=== PATIENT | male | born 1955 | race Caucasian/White ===

== ENCOUNTER 2023-12-22 07:05 | Emergency (ER) | payer OTHER, SELFPAY ==
[2023-12-22] MEDS ORDERED: DOXYCYCLINE 100 MG CAP PO ONE (07:40)
[2023-12-22] MEDS ORDERED: CLINDAMYCIN 600MG/D5W 50 ML IV ONE (07:40)
--- NOTE | 2023-12-22 08:07 | ER ---
Nurse's Notes [facility] Name: Flakito Abbott Age: 68 yrs Sex: Male : 1955 Arrival Date: 12/22/2023 Time: 07:05 Bed 8 Private MD: Diagnosis: Cellulitis of left finger Presentation: 12/21 07:21 Chief complaint: Patient states: has a small cut on left index finger that he noticed iw yesterday , has had pain throughout the night and it is red and swollen , pt is unsure how he injured himself but he was pulling weeds yesterday. Coronavirus screen: At this time, the client does not indicate any symptoms associated with coronavirus-19. Ebola Screen: No symptoms or risks identified at this time. Initial Sepsis Screen: Does the patient meet any 2 criteria? No. Patient's initial sepsis screen is negative. Does the patient have a suspected source of infection? No. Patient's initial sepsis screen is negative. Risk Assessment: Do you want to hurt yourself or someone else? Patient reports no desire to harm self or others. Onset of symptoms was December 21, 2023. 07:21 Method Of Arrival: Ambulatory iw 07:21 Acuity: KAYLAN 4 iw Historical: - Allergies: 07:23 No Known Allergies; iw - PMHx: 07:23 Hypertensive disorder; iw - Immunization history:: Adult Immunizations up to date. - Infectious Disease History:: Denies. - Social history:: Smoking status: Patient reports use of chewing tobacco. - Family history:: not pertinent. - Hospitalizations: : No recent hospitalization is reported. Screenin:25 [facility] ED Fall Risk Assessment (Adult) History of falling in the last 3 months, iw including since admission No falls in past 3 months (0 pts) Confusion or Disorientation No (0 pts) Intoxicated or Sedated No (0 pts) Impaired Gait No (0 pts) Mobility Assist Device Used No (0 pt) Altered Elimination No (0 pt) Score/Fall Risk Level 0 - 2 = Low Risk Oriented to surroundings, Maintained a safe environment. Abuse screen: Denies threats or abuse. Nutritional screening: No deficits noted. Tuberculosis screening: No symptoms or risk factors identified. Assessment: 07:24 General: Appears in no apparent distress. Behavior is calm, cooperative. Pain: iw Complains of pain in palmar aspect of distal phalanx of left index finger, palmar aspect of middle phalanx of left index finger and palmar aspect of proximal phalanx of left index finger Pain currently is 8 out of 10 on a pain scale. Neuro: Level of Consciousness is awake, alert, obeys commands, Oriented to person, place, time, situation, Moves all extremities. Cardiovascular: Patient's skin is warm and dry. Respiratory: Airway is patent Respiratory effort is even, unlabored, Respiratory pattern is regular. Derm: Musculoskeletal: Swelling present in palmar aspect of distal phalanx of left index finger and palmar aspect of middle phalanx of left index finger. Vital Signs: 07:21 BP 136 / 80; Pulse 69; Resp 16; Pulse Ox 98% on R/A; Weight 113.4 kg; Height 6 ft. 0 iw in. ; Pain 8/10; 07:21 Body Mass Index 33.91 (113.40 kg, 182.88 cm) iw 07:21 Pain Scale: Adult iw ED Course: 07:12 Patient arrived in ED. ra3 07:13 Garfield Koch MD is Attending Physician. rn 07:23 Triage completed. iw 07:24 Arm band placed on. iw 07:25 Patient has correct armband on for positive identification. iw 07:33 Emmie Kendrick RN is Primary Nurse. iw 07:52 Inserted saline lock: 22 gauge in right hand, using aseptic technique. Flushed with 10 iw mL NS. 08:20 Provided Education on: follow up instructions . iw 08:51 No provider procedures requiring assistance completed. IV discontinued, intact, iw bleeding controlled, No redness/swelling at site. Pressure dressing applied. Administered Medications: 07:40 Drug: Clindamycin IVPB 600 mg IVPB once over 30 mins; (mix in 50 mL) Route: IVPB; iw Infused Over: 30 mins; Site: right hand; 08:00 Follow up: IV Status: Completed infusion iw 07:51 Drug: Doxycycline PO 100 mg PO once Route: PO; iw 08:00 Follow up: Response: No adverse reaction iw 07:55 Not Given (Other Intervention Used): [id number] mg IM once iw Medication: 07:30 VIS not applicable for this client. iw Outcome: 08:06 Discharge ordered by . rn 08:51 Discharged to home ambulatory, iw 08:51 Condition: good 08:51 Discharge instructions given to patient, Instructed on discharge instructions, follow up and referral plans. medication usage, Demonstrated understanding of instructions, follow-up care, medications, Prescriptions given X 3, 08:52 Patient left the ED. iw Signatures: Emmie Kendrick, RN Garfield Woodward MD MD rn Alva, Ruby ra3 Corrections: (The following items were deleted from the chart) 19:24 10:00 Provided Education on: follow up instructions . iw iw
--- NOTE | 2023-12-22 08:07 | EDPHYS ---
Physician Documentation [facility] Name: Flakito Abbott Age: 68 yrs Sex: Male : 1955 Arrival Date: 12/22/2023 Time: 07:05 Bed 8 Private MD: ED Physician Garfield Koch HPI: 12/21 08:01 This 68 yrs old Male presents to ER via Ambulatory with complaints of finger problem. rn 08:01 The patient or guardian reports injury, pain. The complaints affect the left hand rn diffusely. Onset: The symptoms/episode began/occurred yesterday. Modifying factors: The symptoms are alleviated by nothing, the symptoms are aggravated by movement. Severity of symptoms: At their worst the symptoms were mild, in the emergency department the symptoms are unchanged. The patient has not experienced similar symptoms in the past. Pt reports accidental cut on left 2nd finger, happened yesterday, while doing yard work. Was a small cut so did not seek care, pain worsened this morning with mild swelling at the cath site with drainage. No fever or chills. No pain along flexor surface.. Historical: - Allergies: 07:23 No Known Allergies; iw - PMHx: 07:23 Hypertensive disorder; iw - Immunization history:: Adult Immunizations up to date. - Infectious Disease History:: Denies. - Social history:: Smoking status: Patient reports use of chewing tobacco. - Family history:: not pertinent. - Hospitalizations: : No recent hospitalization is reported. ROS: 08:01 Constitutional: Negative for fever, chills, and weight loss, MS/Extremity: Positive for rn laceration to the left second finger with swelling and pain Exam: 08:01 Constitutional: This is a well developed, well nourished patient who is awake, alert, rn and in no acute distress. MS/ Extremity: Pulses equal, no cyanosis. Neurovascular intact. Left second digit with 1 cm superficial laceration and bruising just lateral to the PIP of the left hand. Clear drainage. No fluctuance. No cyanosis. No tenderness along the flexor tendons or fusiform swelling. Swelling isolated to area around laceration. No redness or warmth. Vital Signs: 07:21 BP 136 / 80; Pulse 69; Resp 16; Pulse Ox 98% on R/A; Weight 113.4 kg; Height 6 ft. 0 iw in. ; Pain 8/10; 07:21 Body Mass Index 33.91 (113.40 kg, 182.88 cm) iw 07:21 Pain Scale: Adult iw MDM: 07:13 Patient medically screened. rn 08:01 Differential diagnosis: Laceration, cellulitis. Data reviewed: vital signs, nurses rn notes, and as a result, I will discharge patient. Counseling: I had a detailed discussion with the patient and/or guardian regarding the historical points, exam findings, and any diagnostic results supporting the discharge/admit diagnosis, the need for outpatient follow up, to return to the emergency department if symptoms worsen or persist or if there are any questions or concerns that arise at home. Special discussion: I discussed with the patient/guardian in detail that at this point there is no indication for admission to the hospital. It is understood, however, that if the symptoms persist or worsen the patient needs to return immediately for re-evaluation. ED course: Early cellulitis of the left second finger, no fluctuance, no evidence of flexor tenosynovitis at this point. Discussed possible worsening with the patient and given return precautions. Will discharge home with oral antibiotics.. 12/21 08:05 Order name: IV Start; Complete Time: 08:52 rn Administered Medications: 07:40 Drug: Clindamycin IVPB 600 mg IVPB once over 30 mins; (mix in 50 mL) Route: IVPB; iw Infused Over: 30 mins; Site: right hand; 08:00 Follow up: IV Status: Completed infusion iw 07:51 Drug: Doxycycline PO 100 mg PO once Route: PO; iw 08:00 Follow up: Response: No adverse reaction iw 07:55 Not Given (Other Intervention Used): [id number] mg IM once iw Disposition Summary: 12/22/23 08:06 Discharge Ordered Notes: Location: Home rn Problem: new rn Symptoms: are unchanged rn Condition: Stable rn Diagnosis - Cellulitis of left finger rn Followup: rn - With: Private Physician - When: As needed - Reason: Recheck today's complaints, Re-evaluation by your physician Discharge Instructions: - Discharge Summary Sheet rn - Cellulitis, Adult rn Forms: - Medication Reconciliation Form rn - Antibiotic distance learning unit leader - Prescription Opioid Use rn - Patient Portal Instructions rn - Leadership Thank You Letter rn Prescriptions: - Clindamycin HCl 300 mg Oral Capsule - take 1 capsule ORAL route every 6 hours for 10 days; 40 capsule; Refills: 0, rn Product Selection Permitted - Tramadol 50 mg Oral Tablet - take 1 tablet ORAL route every 8 hours as needed; 12 tablet; Refills: 0, rn Product Selection Permitted - Doxycycline Monohydrate 100 mg Oral Tablet - take 1 tablet ORAL route every 12 hours for 10 days; 20 tablet; Refills: 0, rn Product Selection Permitted Signatures: Emmie Kendrick RN RN iw Garfield Koch MD MD rn
[2023-12-22 09:02] VITALS: BP 136/80; O2SAT 98
== END 2023-12-22 08:52 | disposition home or self-care (01) ==
LOC: ER 07:05
DX: L03.012 Cellulitis of left finger (principal); F17.220 Nicotine dependence, chewing tobacco, uncomplicated
CPT/HCPCS: 96365; 99284

== ENCOUNTER 2024-01-16 22:01 | Emergency (ER) | payer OTHER ==
[2024-01-16 23:01] LABS: Specific Gravity 1.018 (1.005-1.030); Sqamous Epithelial <5 /HPF (None Seen); Urine Bacteria <20 /HPF (<20); Urine Bilirubin NEGATIVE (Negative); Urine Blood 1+ (Negative); Urine Clarity Turbid (Clear); Urine Color Light-Yellow (Yellow); Urine Culture Reflex Order REFLEXED; Urine Glucose NEGATIVE (Negative); Urine Ketones NEGATIVE (Negative); Urine Microscopic Reflex YN ORDER UMIC; Urine Mucus Slight /HPF (None Seen); Urine Nitrite NEGATIVE (Negative); Urine Protein TRACE (Negative); Urine RBC 21-50 /HPF (None Seen); Urine Urobilinogen Normal (Normal); Urine WBC 20-50 /HPF (<5); Urine WBC Clump Rare /HPF (None Seen)
[2024-01-16] MEDS ORDERED: NA CHLORIDE 0.9% 1,000 ML ONE (23:01)
[2024-01-16 23:12] LABS: Albumin 3.8 g/dL (3.4-5.0); Anion Gap 9.8 mEq/L (5.0-15.0); Bilirubin Total 0.8 mg/dL (0.2-1.0); Globulin 3.8 g/dL (2.3-3.5); Potassium 3.8 mEq/L (3.5-5.1); Protein, Total 7.6 g/dL (6.4-8.2)
[2024-01-16 23:18] LABS: Absolute Basophils 0.1 K/uL (0-0.5); Absolute Eosinophils 0.1 K/uL (0-0.5); Absolute Lymphocytes (CBC) 1.6 K/uL (0.7-4.9); Absolute Monocytes 0.8 K/uL (0.1-1.3); Absolute Neutrophil 8.6 K/uL (1.8-8.0); Basophils % 0.5 % (0-1.3); Hematocrit 43.8 % (39.6-49.0); Hemoglobin 14.9 g/dL (13.6-17.9); Lymphocytes % 14.5 % (15.3-44.8); MCH 33.4 pg (27.0-35.0); MCV 98.2 fL (80-100); MPV 8.5 fL (7.6-11.3); Monocytes % 7.3 % (3.3-12.3); Neutrophils % 76.7 % (41.7-73.7); Nucleated Red Blood Cells % 0.1 % (0-0); Platelets 156 thou/uL (152-406); RBC Red Blood Cell Count 4.46 M/uL (4.33-5.43); Red Cell Distribution Width 13.3 % (12.1-15.2)
--- NOTE | 2024-01-17 00:59 | ER ---
Nurse's Notes [facility] Name: Flakito Abbott Age: 68 yrs Sex: Male : 1955 Arrival Date: 01/16/2024 Time: 22:01 Bed 6 Private MD: Diagnosis: Renal mass - right;Calculus of kidney with calculus of ureter;Constipation Presentation: 01/15 22:26 Chief complaint: Patient states: Pt states constipation x2 days. Pt states took dd2 Dulcolax total 5 in 2 days, along with stool softeners. Coronavirus screen: At this time, the client does not indicate any symptoms associated with coronavirus-19. Ebola Screen: No symptoms or risks identified at this time. Initial Sepsis Screen: Does the patient meet any 2 criteria? No. Patient's initial sepsis screen is negative. Does the patient have a suspected source of infection? No. Patient's initial sepsis screen is negative. Risk Assessment: Do you want to hurt yourself or someone else? Patient reports no desire to harm self or others. Onset of symptoms was January 15, 2024. 22:26 Method Of Arrival: Ambulatory dd2 22:26 Acuity: KAYLAN 3 dd2 Triage Assessment: 22:29 General: Appears in no apparent distress. Behavior is calm, cooperative, appropriate dd2 for age. Pain: Complains of pain in left lower quadrant Pain currently is 5 out of 10 on a pain scale. EENT: No deficits noted. No signs and/or symptoms were reported regarding the EENT system. Neuro: No deficits noted. Level of Consciousness is awake, alert, obeys commands, Oriented to person, place, time, situation, Moves all extremities. Gait is steady, Speech is normal. Cardiovascular: Denies chest pain, Patient's skin is warm and dry. Respiratory: No deficits noted. Airway is patent Respiratory effort is even, unlabored, Respiratory pattern is regular, symmetrical. GI: Abdomen is distended, obese, Bowel sounds present X 4 quads. Abdomen is tender to palpation in left lower quadrant Reports constipation. : No deficits noted. Derm: No deficits noted. No signs and/or symptoms reported regarding the dermatologic system. Musculoskeletal: No deficits noted. No signs and/or symptoms reported regarding the musculoskeletal system. Range of motion: intact in all extremities. Historical: - PMHx: 22:29 Hypertensive disorder; dd2 - PSHx: 22:29 Tonsillectomy; dd2 - Immunization history:: Adult Immunizations unknown. - Infectious Disease History:: Denies. - Social history:: Smoking status: Patient denies any tobacco usage or history of. Screenin:09 [facility] ED Fall Risk Assessment (Adult) History of falling in the last 3 months, dd2 including since admission No falls in past 3 months (0 pts) Confusion or Disorientation No (0 pts) Intoxicated or Sedated No (0 pts) Impaired Gait No (0 pts) Mobility Assist Device Used No (0 pt) Altered Elimination No (0 pt) Score/Fall Risk Level 0 - 2 = Low Risk Oriented to surroundings, Maintained a safe environment, Educated pt \T\ family on fall prevention, incl call for assistance when getting out of bed, Hourly rounding (assess needs \T\ fall precautionary measures) done. Abuse screen: Denies threats or abuse. Nutritional screening: No deficits noted. Tuberculosis screening: No symptoms or risk factors identified. Assessment: 22:32 Reassessment: See triage for full assessment. dd2 Vital Signs: 22:26 BP 154 / 91; Pulse 66; Resp 16; Temp 98.1(O); Pulse Ox 98% on R/A; Weight 117.93 kg; dd2 23:13 BP 150 / 83; Pulse 60; Resp 17; Pulse Ox 97% on R/A; dd2 09 01:05 BP 139 / 82; Pulse 64; Resp 16; Pulse Ox 96% on R/A; dd2 ED Course: 01/15 22:03 Patient arrived in ED. im 22:15 Ángela Vang FNP-C is PHCP. kb 22:15 Rubén Mondragon MD is Attending Physician. kb 22:19 CHRIS MALONE RN is Primary Nurse. dd2 22:29 Triage completed. dd2 22:29 Arm band placed on left wrist. Patient placed in an exam room, on a stretcher, on pulse dd2 oximetry. 22:48 Initial lab(s) drawn, by me, sent to lab. Urine collected: clean catch specimen, clear. dd2 Inserted saline lock: 20 gauge in right antecubital area, using aseptic technique. Blood collected. Flushed with 10 mL NS. 22:49 CBC with Diff Sent. dd2 22:49 CMP Sent. dd2 22:49 Lipase Sent. dd2 22:49 Urinalysis w/ reflexes Sent. dd2 23:09 Patient has correct armband on for positive identification. Bed in low position. Call dd2 light in reach. Side rails up X 1. Provided Education on: call light, labs, medication and procedures. Client placed on continuous cardiac and pulse oximetry monitoring. NIBP monitoring applied. Door closed. Lights dimmed. Warm blanket given. Pillow given. Verbal reassurance given. 23:09 No provider procedures requiring assistance completed. dd2 23:46 CT Abd/Pelvis - IV Contrast Only In Process Unspecified. EDMS 01/16 00:59 Temi Clayton MD is Referral Physician. kb 01:05 IV discontinued, intact, bleeding controlled, No redness/swelling at site. Pressure dd2 dressing applied. Administered Medications: 01/15 23:03 Drug: NS 0.9% IV 1000 ml IV at 1 bolus Per protocol; 1000 mL bolus Route: IV; Rate: 1 dd2 bolus; Site: right antecubital; 23:18 Follow up: Response: No adverse reaction dd2 01/16 00:10 Follow up: IV Status: Completed infusion; IV Intake: 1000ml dd2 01:05 Drug: Dulcolax MO Suppository 10 mg MO once Route: MO; dd2 01:07 Follow up: Response: Medication administered at discharge. dd2 Medication: 01/15 23:09 VIS not applicable for this client. dd2 Intake: 01/16 00:10 IV: 1000ml; Total: 1000ml. dd2 Outcome: 00:59 Discharge ordered by . kb 01:05 Discharged to home ambulatory, dd2 01:05 Condition: stable 01:05 Discharge instructions given to patient, Instructed on discharge instructions, follow up and referral plans. Demonstrated understanding of instructions, follow-up care, 01:07 Patient left the ED. dd2 Signatures: Dispatcher [employer] JOÃOHI Ángela Vang, YFN RODRIGUEZ-Cindy Ambriz DIANA, RN RN dd2
--- NOTE | 2024-01-17 00:59 | EDPHYS ---
Physician Documentation [facility] Name: Flakito Abbott Age: 68 yrs Sex: Male : 1955 Arrival Date: 01/16/2024 Time: 22:01 Bed 6 Private MD: ED Physician Rubén Mondragon HPI: 01/16 00:28 This 68 yrs old Male presents to ER via Ambulatory with complaints of Constipation. kb 00:28 Pt is a 68 year old male who presents for constipation for 2 days. States he has taken kb dulcolax and stool softeners but unable to have BM. Denies any alleviating or aggravating factors. Reports left abd pain. Historical: - PMHx: 01/15 22:29 Hypertensive disorder; dd2 - PSHx: 22:29 Tonsillectomy; dd2 - Immunization history:: Adult Immunizations unknown. - Infectious Disease History:: Denies. - Social history:: Smoking status: Patient denies any tobacco usage or history of. ROS: 01/16 00:27 Constitutional: As per HPI kb Exam: 00:27 Constitutional: This is a well developed, well nourished patient who is awake, alert, kb and in no acute distress. Head/Face: Normocephalic, atraumatic. ENT: Moist Mucous membranes Cardiovascular: Regular rate Respiratory: Respirations even and unlabored. No increased work of breathing. Talking in full sentences Back: No spinal tenderness. No costovertebral tenderness. Full range of motion. Skin: Warm, dry with normal turgor. Normal color. MS/ Extremity: Pulses equal, no cyanosis. Neurovascular intact. Full, normal range of motion. Neuro: Awake and alert, GCS 15, oriented to person, place, time, and situation. Moves all extremities. Normal gait. 00:27 Abdomen/GI: Inspection: distension, that is mild, in the abdomen diffusely, Bowel sounds: normal, Palpation: soft, in all quadrants, mild abdominal tenderness, in the left upper quadrant, Vital Signs: 01/15 22:26 BP 154 / 91; Pulse 66; Resp 16; Temp 98.1(O); Pulse Ox 98% on R/A; Weight 117.93 kg; dd2 23:13 BP 150 / 83; Pulse 60; Resp 17; Pulse Ox 97% on R/A; dd2 01/16 01:05 BP 139 / 82; Pulse 64; Resp 16; Pulse Ox 96% on R/A; dd2 MDM: 01/15 22:15 Patient medically screened. 01/16 00:25 Data reviewed: vital signs, nurses notes. Discussion of test interpretation with kb radiology: I had a discussion with radiology regarding a test interpretation. CT findings discussed with radiologist . 00:55 Differential diagnosis: constipation, bowel obstruction. Consideration of kb Admission/Observation Escalation of care including admission/observation considered. admission/transfer considered. Discussed with Dr Mondragon who recommends follow up with oncology and urology on outpatient basis. Management of patient was discussed with the following: Dr Mondragon. Counseling: I had a detailed discussion with the patient and/or guardian regarding the historical points, exam findings, and any diagnostic results supporting the discharge/admit diagnosis, lab results, radiology results, the need for outpatient follow up, urology and oncology. ED course: Discussed all diagnostic results with pt. Educated on importance of prompt follow up with oncology for renal mass. Verbal understanding received. Pt states he feels fine right now, denies pain. Pt has no urinary symptoms. . 01/15 22:27 Order name: CBC with Diff; Complete Time: 23:27 01/15 22:27 Order name: CMP; Complete Time: 23:14 kb 01/15 22:27 Order name: Lipase; Complete Time: 23:14 kb 01/15 22:27 Order name: Urinalysis w/ reflexes; Complete Time: 23:02 01/15 23:05 Order name: Urine Culture EDNY 01/15 22:27 Order name: CT Abd/Pelvis - IV Contrast Only 01/15 22:27 Order name: IV Saline Lock; Complete Time: 22:49 kb 01/15 22:27 Order name: Labs collected and sent; Complete Time: 22:49 kb Administered Medications: 01/15 23:03 Drug: NS 0.9% IV 1000 ml IV at 1 bolus Per protocol; 1000 mL bolus Route: IV; Rate: 1 dd2 bolus; Site: right antecubital; 23:18 Follow up: Response: No adverse reaction dd2 01/16 00:10 Follow up: IV Status: Completed infusion; IV Intake: 1000ml dd2 01:05 Drug: Dulcolax SD Suppository 10 mg SD once Route: SD; dd2 01:07 Follow up: Response: Medication administered at discharge. dd2 Disposition: 22:38 Co-signature as Attending Physician, Rubén Mondragon MD I agree with the assessment sp4 and plan of care. I reviewed the patient's care provided by Advanced Practice Provider \T\ agree w/ the diagnosis \T\ care plan. I personally saw the pt \T\ performed a substantive portion of the visit, incldng all aspects of the (History/Exam/Medical Decision Making). Disposition Summary: 01/17/24 00:59 Discharge Ordered Notes: Location: Home kb Condition: Stable kb Diagnosis - Renal mass - right kb - Calculus of kidney with calculus of ureter kb - Constipation kb Followup: kb - With: Emergency Department - When: As needed - Reason: Worsening of condition Followup: kb - With: Private Physician - When: 2 - 3 days - Reason: Recheck today's complaints, Continuance of care, Re-evaluation by your physician Followup: kb - With: Temi Clayton MD - When: 1 - 2 days - Reason: Recheck today's complaints Discharge Instructions: - Discharge Summary Sheet kb - Constipation, Adult, [id number] kb - Kidney Stones, [id number] kb - Renal Mass kb Forms: - Medication Reconciliation Form kb - Antibiotic Education kb - Prescription Opioid Use kb - Patient Portal Instructions kb - Leadership Thank You Letter kb Signatures: Dispatcher [employer] EDNY Ángela Vang, MEDICAL CLAIMS SPECIALIST-C MEDICAL CLAIMS SPECIALIST-Rubén Irving MD MD sp4 CHRIS MALONE RN RN dd2 Corrections: (The following items were deleted from the chart) 01/15 22:28 22:28 CBC+H.LAB.BRZ ordered. EDNY EDMS 22:28 22:28 COMPREHENSIVE METABOLIC PANEL+C.LAB.BRZ ordered. EDNY EDNY 22:28 22:28 LIPASE+C.LAB.BRZ ordered. EDNY EDMS 22:28 22:28 Urinalysis+U.LAB.BRZ ordered. [facility] EDNY 01/16 00:29 00:27 Abdomen/GI: Inspection: distension, that is mild, in the abdomen diffusely, Bowel kb sounds: normal, Palpation: soft, in all quadrants, mild abdominal tenderness, in the left lower quadrant, kb
[2024-01-17] MEDS ORDERED: BISACODYL 10 MG RECTAL SUPP ONE (01:01)
[2024-01-17 02:01] VITALS: TEMP 98.1
[2024-01-17 02:04] VITALS: BP 139/82; O2SAT 96
--- NOTE | 2024-01-17 08:31 | RAD REPORT ---
EXAM: CTABDOMEN AND PELVIS WITH CONTRAST DATE: 01/16/2024 10:27 PM CDT INDICATION: 68-year-old male with abdominal pain. COMPARISON: None. TECHNIQUE: Volumetric CT of the abdomen and pelvis acquired following the intravenous administration of contrast. Axial, coronal and sagittal images are provided. The study was performed using dose reduction techniques inc luding automated exposure control and/or adjustment of the MA and/or KV according to patient size, and/or iterative reconstruct ion techniques. FINDINGS: Lower thorax: Mild bibasilar subsegmental atelectasis and/or scarring. No consolidation or pleural ef fusion. Partially visualized heart is normal in size. Liver: Diffuse hepatic hypoattenuation, most suggestive of diffuse steatosis, with adipose tissue spa ring adjacent to the gallbladder. 3.8 cm left hepatic segment II/III cyst. Biliary tree: No intra- or extrahepatic bile duct dilation. Gallbladder: No calcified cholelithiasis or pericholecystic inflammation. Pancreas: No pancreatic lesion. Spleen: No splenic lesion. Adrenals: No right adrenal gland lesion. Nonspecific nodular thickening of the inferior left adrenal gland. Kidneys and ureters: 1.5 cm left UPJ calculi, with associated mild hydronephrosis, with mild perineph pam and peripelvic edematous and/or inflammatory stranding. 7.8 x 6.1 x 6 cm (AP, CC, transverse) heterogeneously enhancing right renal mass, that represents mal ignancy, including 2renal cell carcinoma, until proven otherwise. Nonspecific bilateral perinephric stranding. Bladder/reproductive organs: Prostate gland contains subcentimeter calcifications, and measures 6.5 x 5.3 x 4.9 cm for a volume of 88 mL. Nonspecific periprostatic stranding, which can be seen with prostatitis. Correlation with PSA level and clinical exam suggested. Gastrointestinal tract: Lower esophagus/stomach/small bowel: Stomach is partially decompressed, limiting evaluation. Colon: Moderate retained colonic stool. Appendix: Normal caliber appendix. Mild nonspecific circumferential rectal mural thickening, which ca n be seen with inadequate distention, and/or intrinsic mural pathology, including mild infectious and/or inflammatory proctitis . Peritoneum, mesentery and retroperitoneum: No free air, ascites or loculated fluid. Lymph nodes: No pathologic adenopathy based on size criteria. Vasculature: Aorta and branches: Mild atherosclerotic aortoiliac calcifications. Aorta has normal diameter. IVC and veins: IVC has a normal diameter. Subcentimeter calcified pelvic phleboliths. Bones: Degenerative changes, including mild to moderate multilevel spondylosis, bilateral hip and SI joint osteoarthrosis. No destructive osseous lesion. Bilateral innominate bones and proximal femoral nonspecific subcentimeter sclerotic foci, likely bone islands. Soft tissues: Small bilateral inguinal hernias and tiny umbilical hernia containing adipose tissue. This case was discussed by telephone with nurse practitioner Ángela Vang, who voiced understandin g, at the time of dictation 01/17/2024 at 12:20 AM. IMPRESSION: 1. Mild left obstructive uropathy secondary to a 1.5 cm left UPJ calculus. 2. Heterogeneously enhancing right renal mass, that represents malignancy, including renal cell carci noma, until proven otherwise. 3. Prostatomegaly. Nonspecific periprostatic stranding, which can be seen with prostatitis. Correlati on with PSA level and clinical exam suggested. 4. Diffuse hepatic steatosis. 5. Additional findings as discussed. Electronically signed by: Steve Flores MD 01/17/2024 12:42 AM T Due to temporary technical issues with the PACS/[employer] reporting system, reports are being ramon d by the in-house radiologist without review as a courtesy to ensure prompt reporting the interpreting radiologist is fully responsible for the content of the report. Transcribed Date/Time: 01/17/2024 8:31 AM
== END 2024-01-17 01:07 | disposition home or self-care (01) ==
LOC: ER 22:01
DX: K59.00 Constipation, unspecified (principal); N20.2 Calculus of kidney with calculus of ureter; N28.89 Other specified disorders of kidney and ureter; I10 Essential (primary) hypertension
CPT/HCPCS: 87088; 85025; 81001; 87086; 36415; 83690; 80053; 74177; 96360; 99284; Q9967; J7030